=== PATIENT | female | born 2000 | race Two or more races ===

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

== ENCOUNTER 2019-12-18 21:34 | Emergency (ER) | payer BC ==
[~2019-12-18] VITALS: Ht 162.6 cm; Wt 74.1 kg
[2019-12-18 21:38] VITALS: BP 138/62
[2019-12-18] MEDS ORDERED: NITR-67 (21:53)
[2019-12-18] MEDS ORDERED: MOTR200T44 PO (21:54)
== END 2019-12-18 22:35 | disposition home or self-care (01) ==
LOC: M ED 21:34
DX: F41.1 Generalized anxiety disorder (principal); F12.10 Cannabis abuse, uncomplicated; Z88.8 Allergy status to other drugs, medicaments and biological substances

== ENCOUNTER → 2020-04-28 | Outpatient (REF) | payer BC ==
[~2020-04-28] MED LIST: MOTR200T44 PO; NITR-67
== END ==
LOC: M LAB REF 18:31
PROVIDERS: ATTEND Physician Assistant
DX: R30.0 Dysuria (principal)

== ENCOUNTER 2021-01-27 13:09 | Emergency (ER) | payer BC, OTHER ==
[~2021-01-27] VITALS: Ht 162.6 cm; Wt 74.8 kg
[2021-01-27 15:46] VITALS: BP 113/59
== END 2021-01-27 15:47 | disposition home or self-care (01) ==
LOC: M ED 13:09
DX: F43.0 Acute stress reaction (principal); Z88.2 Allergy status to sulfonamides

== ENCOUNTER 2021-03-04 12:00 | Emergency (ER) | payer OTHER ==
[~2021-03-04] VITALS: Ht 162.6 cm; Wt 76.4 kg
[2021-03-04 14:09] LABS: HEMATOCRIT 39.7 % (36.0-47.0); HEMOGLOBIN 13.3 g/dl (12.0-15.5); MEAN CORPUSCULAR HEMOGLOBIN 30.6 pg (27.0-33.0); MEAN CORPUSCULAR HGB CONC 33.5 g/dl (32.0-36.5); MEAN CORPUSCULAR VOLUME 91.5 fl (80.0-96.0); PLATELET COUNT, AUTOMATED 340 10^3/uL (150-450); RED BLOOD COUNT 4.34 10^6/uL (4.00-5.40); WHITE BLOOD COUNT 5.4 10^3/uL (4.0-10.0)
[2021-03-04 14:42] LABS: AMPHETAMINES LEVEL URINE NEGATIVE (NEGATIVE); BARBITURATES URINE NEGATIVE (NEGATIVE); BENZODIAZEPINES URINE NEGATIVE (NEGATIVE); CANNABINOIDS URINE POSITIVE (NEGATIVE); COCAINE METABOLITE URINE NEGATIVE (NEGATIVE); METHADONE URINE NEGATIVE (NEGATIVE); OPIATES URINE NEGATIVE (NEGATIVE); PHENCYCLIDINE URINE NEGATIVE (NEGATIVE)
[2021-03-04 14:45] LABS: ACETAMINOPHEN LEVEL < 2.0 UG/ML (10.0-30.0); ALBUMIN 3.9 GM/DL (3.2-5.2); ALT/SGPT 22 U/L (12-78); BILIRUBIN,DIRECT < 0.1 MG/DL (0.0-0.2); BILIRUBIN,TOTAL 0.3 MG/DL (0.2-1.0); BLOOD UREA NITROGEN 10 MG/DL (7-18); CALCIUM LEVEL 9.1 MG/DL (8.5-10.1); CARBON DIOXIDE LEVEL 24 MEQ/L (21-32); CHLORIDE LEVEL 111 MEQ/L (98-107); CREATININE FOR GFR 0.58 MG/DL (0.55-1.30); ETHYL ALCOHOL (ETHANOL) < 0.003 % (0.000-0.010); GLOMERULAR FILTRATION RATE > 60.0 (>60); GLUCOSE, FASTING 84 MG/DL (70-100); POTASSIUM SERUM 4.2 MEQ/L (3.5-5.1); SALICYLATE LEVEL < 1.7 MG/DL (5.0-30.0); SODIUM LEVEL 141 MEQ/L (136-145); TOTAL PROTEIN 8.1 GM/DL (6.4-8.2)
[2021-03-04] MEDS ORDERED: CEPHALEXIN 500 MG CAP PO ONE (18:45)
[2021-03-04] MEDS ORDERED: CEPH500C PO (18:46)
[2021-03-04 19:00] VITALS: BP 128/79
== END 2021-03-04 18:55 | disposition home or self-care (01) ==
LOC: M ED 12:00
DX: F43.0 Acute stress reaction (principal); S51.812A Laceration without foreign body of left forearm, initial encounter; S71.111A Laceration without foreign body, right thigh, initial encounter; S71.112A Laceration without foreign body, left thigh, initial encounter; X78.9XXA Intentional self-harm by unspecified sharp object, initial encounter; Y92.9 Unspecified place or not applicable; Y93.9 Activity, unspecified; Y99.9 Unspecified external cause status; F41.9 Anxiety disorder, unspecified; Z88.2 Allergy status to sulfonamides; Z88.8 Allergy status to other drugs, medicaments and biological substances

== ENCOUNTER → 2024-06-17 | Outpatient (CLI) | payer OTHER ==
[~2024-06-17] MED LIST changes: +CEPH500C PO
== END ==
LOC: M PLAIMG 07:10
PROVIDERS: ATTEND Physician Assistant
DX: M22.2X1 Patellofemoral disorders, right knee (principal); M67.51 Plica syndrome, right knee

== ENCOUNTER → 2024-07-16 | Outpatient (CLI) | payer OTHER ==
[~2024-07-16] MED LIST changes: +ISOVUE-300 61% 100ML VIAL As Ordered ONE; +LIDOCAINE 1% MDV 20ML VIAL As Ordered ONE; +PROHANCE 279.3MG/ML 5ML VIAL As Ordered ONE
== END ==
LOC: M RAD 07:10
PROVIDERS: ATTEND Physician Assistant
DX: M25.551 Pain in right hip (principal)
CPT/HCPCS: 27093; 73723; 77002; A9576; Q9967

== ENCOUNTER → 2024-08-05 | Outpatient (CLI) | payer OTHER ==
[~2024-08-05] MED LIST changes: -PROHANCE 279.3MG/ML 5ML VIAL As Ordered ONE; +methylPREDNISolone SUSP 40MG/ML 1ML VIAL (DEPO MEDROL) As Ordered ONE
== END ==
LOC: M RAD 14:54
PROVIDERS: ATTEND Physician Assistant
DX: M25.551 Pain in right hip (principal)
CPT/HCPCS: 20610; 77002; J1010; Q9967

== ENCOUNTER 2025-04-15 17:08 | Emergency (ER) | payer MEDICAID, OTHER ==
[~2025-04-15] VITALS: Ht 162.6 cm; Wt 77.2 kg
[~2025-04-15 17:08] MED LIST changes: +CYMB1CAP5 PO; +GABA-1172 PO; +HYDR1CAP25 PO; -ISOVUE-300 61% 100ML VIAL As Ordered ONE; -LIDOCAINE 1% MDV 20ML VIAL As Ordered ONE; +TRAZ-252 PO; -methylPREDNISolone SUSP 40MG/ML 1ML VIAL (DEPO MEDROL) As Ordered ONE
[2025-04-15 17:42] LABS: PLATELET COUNT, AUTOMATED 396 10^3/uL (150-450)
[2025-04-15 18:05] LABS: AMPHETAMINES LEVEL URINE NEGATIVE (NEGATIVE); BARBITURATES URINE NEGATIVE (NEGATIVE); BENZODIAZEPINES URINE NEGATIVE (NEGATIVE); COCAINE METABOLITE URINE NEGATIVE (NEGATIVE); METHADONE URINE NEGATIVE (NEGATIVE); OPIATES URINE NEGATIVE (NEGATIVE); PHENCYCLIDINE URINE NEGATIVE (NEGATIVE)
[2025-04-15 18:07] LABS: ETHYL ALCOHOL (ETHANOL) < 0.003 % (0.000-0.010)
[2025-04-15 18:08] LABS: CANNABINOIDS URINE POSITIVE (NEGATIVE)
[2025-04-15 18:09] LABS: ALT/SGPT 15 U/L (7.0-40); AST/SGOT 12 U/L (<34); CALCIUM LEVEL 9.1 MG/DL (8.5-10.1); CARBON DIOXIDE LEVEL 24 MMOL/L (20-31); CHLORIDE LEVEL 106 MMOL/L (98-107); CREATININE FOR GFR 0.67 MG/DL (0.55-1.30); GLOMERULAR FILTRATION RATE > 90.0 (>60); POTASSIUM SERUM 3.9 MMOL/L (3.5-5.1); SALICYLATE LEVEL < 3.0 MG/DL (<30); SODIUM LEVEL 140 MMOL/L (136-145)
[2025-04-15 18:26] LABS: URINE PREG TEST NEGATIVE (NEGATIVE)
[2025-04-15 18:56] LABS: KETONE, URINE AUTO RFX TRACE mg/dL (NEGATIVE); LEUKOCYTE ESTERASE UR AUTO RFX TRACE (NEGATIVE); MUCUS, URINE RFX LARGE (NEGATIVE); NITRITE, URINE AUTO RFX NEGATIVE (NEGATIVE); RBC, URINE AUTO RFX 3 /HPF (0-3); SQUAM EPITHELIAL CELL UR AURFX 5 /HPF (0-6); WBC, URINE AUTO RFX 2 /HPF (0-3)
[2025-04-15 19:03] LABS: HIV 1&2 SCREEN NEGATIVE (NEGATIVE)
[2025-04-15 19:36] LABS: Trichomonas vaginalis (AMP) NOT DETECTED (NEGATIVE)
[2025-04-15 20:00] LABS: GC DNA AMPLIFICATION NEGATIVE (NEGATIVE)
[2025-04-15 20:24] VITALS: BP 129/72; TEMP 98.5; O2SAT 98
[2025-04-17] MEDS ORDERED: NITR100C3 PO (09:10)
== END 2025-04-15 20:20 | disposition home or self-care (01) ==
LOC: M ED 17:08
DX: F32.A Depression, unspecified (principal); F41.9 Anxiety disorder, unspecified; F12.10 Cannabis abuse, uncomplicated; Z88.2 Allergy status to sulfonamides; Z79.899 Other long term (current) drug therapy